=== PATIENT | female | born 1950 | race Asian ===

== ENCOUNTER → 2019-03-08 | Outpatient (CLI) | payer MEDICARE, OTHER ==
[~2019-03-08] MED LIST: BENTYL 20MG20 MG/TAB PO; CALCIUM CITRATE1 TA7 PO; COLACE 100100 MG/CAP PO; FLEXERIL 1010 MG/TAB PO; LIDODERM 5% PATC1 EA TP; LIQUIFILM TEARS15 ML OU; LISINOPRIL-HCTZ 20-2 PO; MYLICON 8080 MG/TAB. PO; NEURONTIN300 MG/CAP PO; NEXIUM 40MG40 MG PO; NORCO 325 MG-51 TAB PO; PRINZIDE 25 MG-1 TAB PO; REFRESH CELLUVI1 SOL OP; VITAMIN D1000 IU PO
== END ==
LOC: COL.RAD 08:08
DX: R11.0 Nausea (principal); R14.0 Abdominal distension (gaseous); R10.9 Unspecified abdominal pain

== ENCOUNTER 2019-03-24 13:02 | Inpatient (IN) | payer MEDICARE, OTHER ==
[~2019-03-24] VITALS: Ht 160 cm; Wt 55.0 kg
[2019-03-24 15:14] VITALS: BP 141/64; PULSE 58; TEMP 98
[2019-03-24] MEDS ORDERED: PRINZIDE 12.5 M1 TAB PO (18:41)
[2019-03-24] MEDS ORDERED: PROTONIX I40 MG/VIAL IV (18:44)
[2019-03-24 18:57] LABS: BASO % 0.5 % (0.0-2.0); EOS # 0.3 (0.0-0.7); EOS % 3.5 % (0-4.0); GRAN # 4.5 (1.4-6.5); GRAN % 60.4 % (42.2-75.2); HEMOGLOBIN 10.3 g/dl (12.5-16.0); LYMPH # 1.9 (1.2-3.4); LYMPH % 25.5 % (20.0-51.0); MEAN CELL VOLUME 94 fl (80.0-100.0); MEAN CORPUSCULAR HEMOGLOBIN 31 pg (27.0-31.0); MEAN CORPUSCULAR HGB CONC 33 g/dl (33.0-37.0); MEAN PLATELET VOLUME 9.7 fl (7.4-10.4); MONO # 0.7 (0.1-0.6); MONO % 9.7 % (1.7-9.3); PLATELET COUNT 380 K/mm3 (130-400); RED BLOOD COUNT 3.33 M/mm3 (4.10-5.30); REDCELL DISTRIBUTION WIDTH-CV 14.4 % (11.5-14.5)
[2019-03-24 18:58] LABS: HEMATOCRIT 31.3 % (37.0-47.0)
--- NOTE | 2019-03-24 19:23 | NUR ---
Report received from NIA Jones
[2019-03-24 19:51] VITALS: BP 134/56; PULSE 65; TEMP 97.6
--- NOTE | 2019-03-24 19:54 | NUR ---
Pt transferred fron [facility] this afternoon, initial assessments completed, Pt has no C/O pain just mild discomfort at this time,
--- NOTE | 2019-03-24 21:35 | NUR ---
Resting in bed. Assessment complete. Lungs clear. Heart sounds normal. Bowels active x4. Pulses strong throughout. IV left hand without complications. Reports nausea. Provided with PRN zofran. Requested sleeping aide. Obtained order for melatonin. Patient has ABD internal/external bilary catheter in place to dependent drainage. Patient recently independently emptied drainage bag, reports greenish drainage. Will assess at a later time. Denies needs. Call light in reach.
[2019-03-24 23:51] VITALS: BP 119/48; PULSE 57; TEMP 99
--- NOTE | 2019-03-25 00:44 | NUR ---
Resting in bed. Denies needs. Call light in reach.
--- NOTE | 2019-03-25 02:15 | NUR ---
Resting in bed. Call light in reach.
[2019-03-25 03:23] VITALS: BP 154/80; PULSE 65; TEMP 98.3
--- NOTE | 2019-03-25 04:13 | NUR ---
Resting in bed. Denies pain at this time. Call light in reach.
--- NOTE | 2019-03-25 05:56 | NUR ---
Patient required x1 dose of zofran for nausea earlier in evening. Otherwise uneventful night. Resting in bed this AM. Denied needs. Dressing for biliary catheter CDI to dependent drainage with dark green drainage. Denies pain. Call light in reach.
--- NOTE | 2019-03-25 07:00 | NUR ---
Report received from NIA Braswell. Pt in bed resting with eyes closed, will continue to monitor.
--- NOTE | 2019-03-25 07:05 | NUR ---
Report given to NIA Edwards
[2019-03-25 07:24] LABS: BASO % 0.3 % (0.0-2.0); EOS # 0.2 (0.0-0.7); EOS % 2.8 % (0-4.0); GRAN # 4.3 (1.4-6.5); GRAN % 65.8 % (42.2-75.2); HEMOGLOBIN 10.2 g/dl (12.5-16.0); LYMPH # 1.5 (1.2-3.4); LYMPH % 22.7 % (20.0-51.0); MEAN CELL VOLUME 94 fl (80.0-100.0); MEAN CORPUSCULAR HEMOGLOBIN 32 pg (27.0-31.0); MEAN CORPUSCULAR HGB CONC 34 g/dl (33.0-37.0); MEAN PLATELET VOLUME 9.7 fl (7.4-10.4); MONO # 0.5 (0.1-0.6); MONO % 7.8 % (1.7-9.3); PLATELET COUNT 349 K/mm3 (130-400); RED BLOOD COUNT 3.22 M/mm3 (4.10-5.30); REDCELL DISTRIBUTION WIDTH-CV 14.5 % (11.5-14.5)
[2019-03-25 07:31] LABS: HEMATOCRIT 30.3 % (37.0-47.0)
[2019-03-25 07:39] LABS: ALBUMIN 3.2 gm/dL (3.5-5.0); BILIRUBIN,TOTAL 0.5 mg/dL (0.0-1.0); CALCIUM 8.9 mg/dL (8.4-10.2); CREATININE, serum 0.59 (0.52-1.25); POTASSIUM 3.3 mmol/L (3.4-5.0); TOTAL PROTEIN 5.7 gm/dL (6.4-8.2)
[2019-03-25 08:00] VITALS: BP 126/57; PULSE 59; TEMP 97.5
--- NOTE | 2019-03-25 09:00 | NUR ---
Assessment charted pt in bed resting wants to get up and go to the courtyard with . INT'd, IVF to [facility]. Pt has pain in back, wants more lidocaine patches, will address with hosptialist. PRN pain meds given. Drain to LUQ abdomen draining bilious liquid. Doing well, will continue to monitor.
--- NOTE | 2019-03-25 12:33 | NUR ---
Plan: Plans to return home with home health care support. Assessment: SW met with patient and DTR Katy Hercules in room ). Patient indicated DTR can speak on her behalf. Patient resides in with her [place] . Denies having a DPOA. No DME's at this time. Patient has a script from the [facility] for a walker and a medical bed for home but it has not been placed. Patient reports that they have not initiate home health care and the [facility] was to set it up but does not know the name of the company. PCP is Dr. Vallecillo, rx obtained at [facility] or [facility]. Action: ZE gave DTR the medicare.gov list for HHS will need follow up
[2019-03-25 13:00] VITALS: BP 104/45; PULSE 55; TEMP 97.5
[2019-03-25 17:00] VITALS: BP 103/82; PULSE 71; TEMP 97.9
--- NOTE | 2019-03-25 18:25 | NUR ---
Pt has done well over shift, advanced to [place] diet and pt very surprised at how well she is tolerating it. She is happy to have some intake and is taking it slowly. Dressing to biliary drain changed. IVF to , pt refuses to access PAC. Wants to get some sleep. Pt up to [facility] several times over shift today, reviewed tobacco free policy but suspicious of smoking. Will give bedside shift report to nightshift nurse who will resume care.
[2019-03-25 22:14] VITALS: BP 141/44; PULSE 57; TEMP 98.3
--- NOTE | 2019-03-25 23:55 | NUR ---
Sitting in bed. Assessment complete. Lungs clear. Heart sounds normal. Bowels active x4. Pulses strong throughout. Denies pain at this time. x6 lidocaine patches removed from back at this time. Interal/external biliary catheter draining greenish drainage at this time. Denies needs. Call light in reach.
[2019-03-26 00:21] VITALS: BP 126/52; PULSE 59; TEMP 98.1
--- NOTE | 2019-03-26 00:26 | NUR ---
Reports 8/10 back pain. Provided with PRN morphine. Denies other needs.
--- NOTE | 2019-03-26 01:37 | NUR ---
Patient blood sugar 65 at this time. Patient has juice at bedside. Refusing to drink at this time. Educated patient regarding potential of hypoglycemia. Patient voices understanding. Will monitor.
[2019-03-26 05:07] VITALS: BP 116/66; PULSE 87; TEMP 97.9
--- NOTE | 2019-03-26 05:16 | NUR ---
Reports 8/10 back pain. Provided with PRN morphine.
--- NOTE | 2019-03-26 06:07 | NUR ---
Patient required x2 doses of morphine throughout night for back pain. Otherwise uneventful night. Resting in bed this AM. Call light in reach.
--- NOTE | 2019-03-26 06:45 | NUR ---
Report given to NIA Garner
[2019-03-26 07:13] VITALS: BP 145/54; PULSE 52; TEMP 98.2
[2019-03-26 08:20] LABS: CALCIUM 8.8 mg/dL (8.4-10.2); CREATININE, serum 0.58 (0.52-1.25); MAGNESIUM 1.8 mg/dL (1.6-2.3)
--- NOTE | 2019-03-26 13:32 | NUR ---
raw cheese worker discussed home health and community support discharge options with the patient and her daughter (Katy). raw cheese worker referred the patient to [id number] via [facility] ([phone]), [facility] ([phone]), and presented the Medicare.gov home health options list which the patient and her daughter said they will look at and call around to decide which agency best fits their needs. raw cheese worker encouraged patient and Katy to have their doctor provide them with a hard copy of the prescriptions for a hospital bed and walker or to fax the prescriptions to their local durable medical equipment store which she said they had but could not remember the name of it. Patient was eating lunch and there are no further needs at this time.
--- NOTE | 2019-03-26 16:41 | NUR ---
Patient discharged home with family. Instructions discussed and signed by daughter. Personal belongings with family. Discharged to private vehicle via wheelchair.
--- NOTE | 2019-03-27 14:47 | NUR ---
break off worker contacted patient's spouse and daughter, Katy ([phone]) and assisted with set up of home health. Katy stated they wanted to use [facility], given on the Medicare.gov handout. Worker contacted Janneth and gave the referral, to include faxed clinical information. Worker requested that Janneth call patient today to arrange care.
== END 2019-03-26 15:55 | disposition home health service (06) | DRG 439 ==
LOC: SURG 13:02 → MEDICAL 14:00
PROVIDERS: Physician Assistant; ADMIT Hospitalist
DX: K85.90 Acute pancreatitis without necrosis or infection, unspecified (principal); C78.4 Secondary malignant neoplasm of small intestine; E87.1 Hypo-osmolality and hyponatremia; E44.0 Moderate protein-calorie malnutrition; K31.5 Obstruction of duodenum; R74.8 Abnormal levels of other serum enzymes; G89.29 Other chronic pain; M54.9 Dorsalgia, unspecified; E87.6 Hypokalemia; I10 Essential (primary) hypertension; E16.2 Hypoglycemia, unspecified; K21.9 Gastro-esophageal reflux disease without esophagitis; G62.9 Polyneuropathy, unspecified; I35.0 Nonrheumatic aortic (valve) stenosis; R53.81 Other malaise; F17.210 Nicotine dependence, cigarettes, uncomplicated; Z85.038 Personal history of other malignant neoplasm of large intestine; Z90.49 Acquired absence of other specified parts of digestive tract; Z92.21 Personal history of antineoplastic chemotherapy; Z68.21 Body mass index [BMI] 21.0-21.9, adult
CPT/HCPCS: 99222-AI; 99231-AI; 99239; C9113; J1650; J2270; J2405; J3480; J7030